=== PATIENT | female | born 1990 | race Caucasian/White ===

== ENCOUNTER 2018-11-13 19:23 | Emergency (ER) | payer OTHER ==
[~2018-11-13] VITALS: Ht 167.6 cm; Wt 68.0 kg
[~2018-11-13 19:23] MED LIST: ACYC200 PO; ACYC800 PO; AZIT250 PO; BUPR150T2 PO; CEPH500 PO; CIPR500; CIPR500 PO; CIPRO500 MG PO; CLOT1TC TOP; CODACE30 PO; CODGUAEL PO; CYCL10 PO; Colace250 MG PO; DIAZ5 PO; DIPATR PO; DOCU100 PO; DOXY100 PO; DOXY100T53 PO; HYDACE5 PO; HYDCOR2.5B TOP; IBUP600; IBUP600 PO; IBUP800 PO; IUD; K-Dur20 MEQ PO; METR500 PO; MULVITMINE PO; Macrobid 100 M100 MG PO; Milk Of Ma400 MG/5 M PO; NAPR500 PO; NYSTRITC TOP; OXYACE5T PO; OXYB5 PO; PHENA100 PO; PROACE100 PO; PROCODE120 PO; PROM25 PO; PSEU30 PO; Percocet 5-3251 EACH PO; Permethrin60 GM TP; Prednisone20 MG PO; Pyridium100 MG PO; Pyridium200 MG PO; RXCODGUASY PO; RXCYCL10 PO; RXHYD5325 PO; RXHYDACE PO; RXOXYACE PO; RXTRAM50 PO; TOBDEXOPSU OP; TRAM50 PO; TRIA80TC TOP; Veetids 500500 MG PO; YAZ PO
[2018-11-13] MEDS ORDERED: CEPH500 PO (20:01)
== END 2018-11-13 20:04 | disposition home or self-care (01) ==
LOC: ER 19:23
DX: L73.9 Follicular disorder, unspecified (principal); F32.9 Major depressive disorder, single episode, unspecified; F41.9 Anxiety disorder, unspecified; F17.210 Nicotine dependence, cigarettes, uncomplicated

== ENCOUNTER 2019-01-19 14:38 | Emergency (ER) | payer OTHER ==
[~2019-01-19] VITALS: Ht 167.6 cm; Wt 81.7 kg
[2019-01-19] MEDS ORDERED: PRED20 PO (15:47)
[2019-01-19] MEDS ORDERED: ALBU90OI INH (15:47)
[2019-01-19] MEDS ORDERED: Cheratussin AC118 ML PO (15:47)
[2019-01-19] MEDS ORDERED: Zithromax250 MG PO (15:47)
== END 2019-01-19 16:14 | disposition home or self-care (01) ==
LOC: ER 14:38
DX: J18.9 Pneumonia, unspecified organism (principal); F17.210 Nicotine dependence, cigarettes, uncomplicated
CPT/HCPCS: 71046; 94640; 99283-25; J7512